=== PATIENT | female | born 1970 | race African-American/Black ===

== ENCOUNTER 2017-01-21 06:01 | Emergency (ER) | payer SELFPAY ==
[2017-01-21 06:49] LABS: Bilirubin Negative (Negative); Blood, Urine Moderate (Negative); Glucose, Urine (Dipstick) Negative (Negative); Ketone, Urine Negative (Negative); Nitrite Negative (Negative); Protein, Urine (Dipstick) Negative (Neg-Trace); Urobilinogen 0.2 mg/dL (0.2-1.0)
[2017-01-21 07:17] LABS: Bacteria/HPF 1+ HPF (None Seen); Hyaline Casts/LPF 0-3 HYALINE CAST LPF (0-3 Hyaline)
[2017-01-21 07:47] LABS: #Basophils 0.1 thou/uL (0.0-0.2); #Eosinphils 0.1 thou/uL (0.0-0.7); #Lymphocytes 2.2 thou/uL (1.20-3.40); #Monocytes 0.4 thou/uL (0.11-0.59); %Basophils 1.8 % (0.0-1.0); %Eosinophils 2.4 % (0.0-10.0); %Lymphocytes 37.5 % (21.0-51.0); %Monocytes 6.7 % (0.0-10.0); Hematocrit 42.5 % (36.0-47.0); Mean Platelet Volume 7.7 fL (7.4-10.4); Red Blood Cell (RBC) Count 4.66 mill/uL (4.20-5.40); White Blood Cell (WBC) Count 5.9 thou/uL (4.8-10.8)
[2017-01-21 08:13] LABS: ALT (SGPT) 14 U/L (8-55); AST (SGOT) 13 U/L (5-34); Alkaline Phosphatase 71 U/L (40-150); Anion Gap 8 mmol/L (10-20); BUN (Urea Nitrogen) 9 mg/dL (7.0-18.7); Bilirubin, Total 0.2 mg/dL (0.2-1.2); Calc. Creatinine Clearance 0 mL/min (70-130); Calcium 8.6 mg/dL (7.8-10.44); Carbon Dioxide 27 mmol/L (22-29); Chloride 109 mmol/L (98-107); Estimated GFR-MDRD Greater than 90; Globulin 3.5 g/dL (2.4-3.5); Protein, Total 6.9 g/dL (6.0-8.3)
--- NOTE | 2017-01-21 08:28 | RAD ---
UPRIGHT PORTABLE CHEST ONE VIEW: HISTORY: A 46-year-old female with urinary frequency and left groin pain. COMPARISON: 11/07/2014. FINDINGS: Heart size is within normal limits. The lungs show no acute process. No confluent pneumonia, overt edema, or pleural effusion. IMPRESSION: No acute intrathoracic disease. Stable from prior study. POS: [facility]
[2017-01-21] MEDS ORDERED: Ondansetron HCl/PF 4 MG/2 ML Vial ONE (08:55)
--- NOTE | 2017-01-21 09:20 | CT ---
CT OF ABDOMEN AND PELVIS: Date: 01/21/17 COMPARISON: 04/25/16. HISTORY: Hematuria, diarrhea, left lower quadrant pain. TECHNIQUE: Serial axial CT imaging at 5 mm intervals from lung bases through pubic symphysis with intravenous c ontrast. Coronal reformatted imaging obtained. FINDINGS: The lack of oral contrast significantly limits assessment of the bowel. The imaged lung bases are unremarkable. No free intraperitoneal air is noted. The liver, spleen, gallbladder, pancreas, adrenal glands, and kidneys appear grossly unremarkable. No evidence for bowel obstruction or appendicitis. In the right hemipelvis, on axial image 67, there is an oval area of decreased density measuring 4.9 x 2.5 cm, etiology uncertain given lack of oral contrast. This could represent unopacified bowel, s mall volume free fluid, and/or a right adnexal abnormality. There is patchy heterogeneous enhancement of the left aspect of the uterus which could be on the bas is of vascular shunting or fibroid disease. Scattered areas of atherosclerotic calcification of the infrarenal abdominal aorta noted. No lymphad enopathy is identified within the pelvis, retroperitoneum, or mesentery. There are mild stable degenerative changes involving the sacroiliac joints. No acute osseous abnorma lity is noted. IMPRESSION: 1. Oval area of decreased density within the right hemipelvis as detailed above, limited in assessm ent without oral contrast media. This could represent unopacified bowel or an abnormality within the right adnexa. 2. No evidence for bowel obstruction or free intraperitoneal air. POS: [facility]
[2017-01-21] MEDS ORDERED: Ketorolac Tromethamine 30 MG/ML VIAL ONE (10:03)
[2017-01-21] MEDS ORDERED: ISOVUE-370 76%-LOCM 1 ML ONE (15:49)
== END 2017-01-21 12:55 | disposition home or self-care (01) ==
LOC: ERS 06:01
DX: K52.9 Noninfective gastroenteritis and colitis, unspecified (principal); F17.210 Nicotine dependence, cigarettes, uncomplicated; F31.9 Bipolar disorder, unspecified; F41.9 Anxiety disorder, unspecified; E78.00 Pure hypercholesterolemia, unspecified; I10 Essential (primary) hypertension; J45.909 Unspecified asthma, uncomplicated; Z79.899 Other long term (current) drug therapy
CPT/HCPCS: 36415; 71010; 74177; 80053; 81003; 81015; 81025; 85025; 96374; 96375; J1885; J2405

== ENCOUNTER 2021-05-24 12:02 | Inpatient (IN) | payer SELFPAY ==
[2021-05-24] MEDS ORDERED: methylPREDNISolone Sod Succ/PF 125 MG/2 ML VIAL ONE (12:24)
[2021-05-24] MEDS ORDERED: PROVENTIL INHALER 6.7 G (200 INHALATIONS) ONE (12:24)
[2021-05-24] MEDS ORDERED: cefTRIAXone\\ROCEPHIN 1 GM VIAL ONE (12:24)
[2021-05-24] MEDS ORDERED: Magnesium 2 GM/50 ML BAG (IN WATER) ONE (12:24)
[2021-05-24] MEDS ORDERED: Albuterol 200 PUFF (6.7GM INHALER) ONE (12:37)
[2021-05-24 13:12] LABS: #Lymphocytes 2.2 thou/uL (1.20-3.40); #Monocytes 0.3 thou/uL (0.11-0.59); #Neutrophils 11.2 thou/uL (1.40-6.50); %Basophils 0.1 % (0.0-1.0); %Eosinophils 0.2 % (0.0-10.0); %Lymphocytes 15.9 % (21.0-51.0); %Monocytes 1.9 % (0.0-10.0); %Neutrophils 81.9 % (42.0-75.0); Hemoglobin 13.9 g/dL (12.0-16.0); Mean Corpuscular HGB CONC 31.4 g/dL (32.0-36.0); Mean Corpuscular Hemoglobin 28.4 pg (27.0-31.0); Mean Corpuscular Volume 90.4 fL (78.0-98.0); Mean Platelet Volume 7.5 fL (7.4-10.4); Platelet Count 348 thou/uL (130-400); RBC Distribution Width 12.3 % (11.5-14.5); Red Blood Cell (RBC) Count 4.89 mill/uL (4.20-5.40); White Blood Cell (WBC) Count 13.7 thou/uL (4.8-10.8)
[2021-05-24 13:18] LABS: Bilirubin Negative (Negative); Blood, Urine 3+ (Negative); Clarity Turbid (Clear); Glucose, Urine (Dipstick) 300 mg/dL (Negative); Ketone, Urine Negative (Negative); Leukocyte 75 Leu/uL (Negative); Nitrite Negative (Negative); Protein, Urine (Dipstick) 70 mg/dL (Neg-Trace); RBC/HPF 21-50 HPF (0-3); Urobilinogen Normal mg/dL (Less than 2)
[2021-05-24 13:19] LABS: Bacteria/HPF 1+ HPF (None Seen)
[2021-05-24 13:36] LABS: ALT (SGPT) 18 U/L (8-55); AST (SGOT) 17 U/L (5-34); Albumin 4.1 g/dL (3.5-5.0); Alkaline Phosphatase 87 U/L (40-110); Anion Gap 16 mmol/L (10-20); BUN (Urea Nitrogen) 9 mg/dL (7.0-18.7); Bilirubin, Total 0.3 mg/dL (0.2-1.2); Calc. Creatinine Clearance 0 mL/min (70-130); Calcium 9.3 mg/dL (7.8-10.44); Carbon Dioxide 23 mmol/L (22-29); Chloride 102 mmol/L (98-107); Globulin 3.9 g/dL (2.4-3.5); Glucose 292 mg/dL (70-105); Potassium 3.3 mmol/L (3.5-5.1); Sodium 138 mmol/L (136-145)
[2021-05-24 13:50] LABS: SARS-CoV-2 NAA Rapid Test Not Detected (NotDetected)
[2021-05-24] MEDS ORDERED: Azithromycin 500 MG VIAL ONE (13:50)
[2021-05-24] MEDS ORDERED: Ondansetron ODT 4 MG TAB PO PRN (14:02)
[2021-05-24] MEDS ORDERED: HumaLOG 300 UNITS/3 ML VIAL SC PRN (14:18)
[2021-05-24] MEDS ORDERED: Dextrose 50% Abboject 50 ML SYRINGE SLOW IVP PRN (14:18)
[2021-05-24] MEDS ORDERED: Dextrose 5% in Water 1,000 ML IV PRN (14:18)
[2021-05-24] MEDS ORDERED: hydrALAZINE 10 MG TAB PO SCH (14:30)
[2021-05-24] MEDS: hydrALAZINE 20 MG/ML VIAL SLOW IVP PRN ×2 (15:56→20:15)
[2021-05-24] MEDS: Sodium Chloride 0.9% 1,000 ML IV SCH (15:59)
[2021-05-24 16:07] VITALS: BMI 34.1
[2021-05-24 18:13] LABS: Amphetamine Not Detected (NotDetected); Barbiturates Screen Not Detected (NotDetected); Benzodiazepine Screen Not Detected (NotDetected); Cocaine Metabolite Screen Not Detected (NotDetected); Methadone Not Detected (NotDetected); Methamphetamine Not Detected (NotDetected); Opiate Screen Not Detected (NotDetected); Oxycodone Screen Not Detected (NotDetected); Phencyclidine (PCP) Not Detected (NotDetected); THC/Cannabinoid Screen Detected (NotDetected); Tricyclic Screen Not Detected (NotDetected)
[2021-05-24 18:30] LABS: Lactic Acid 2.5 mmol/L (0.5-2.2)
[2021-05-24] MEDS: Acetaminophen 325 MG TAB PO PRN (20:19)
[2021-05-24] MEDS: Simvastatin 10 MG TAB PO SCH (21:17)
[2021-05-24] MEDS: Labetalol HCl 100 MG/20 ML VIAL SLOW IVP PRN (21:18)
[2021-05-24] MEDS: Guaifenesin DM 100-10/5 ML UDCUP PO PRN (21:18)
[2021-05-25] MEDS: Acetaminophen 325 MG TAB PO PRN (00:02)
[2021-05-25] MEDS: Melatonin 3 MG TAB PO PRN ×2 (00:49→20:22)
[2021-05-25] MEDS: Sodium Chloride 0.9% 1,000 ML IV SCH (05:21)
[2021-05-25 06:41] LABS: Hemoglobin A1c 5.6 % (4.0-6.0)
[2021-05-25 06:54] LABS: Anion Gap 13 mmol/L (10-20); BUN (Urea Nitrogen) 6 mg/dL (7.0-18.7); Calc. Creatinine Clearance 166 mL/min (70-130); Calcium 8.8 mg/dL (7.8-10.44); Carbon Dioxide 21 mmol/L (22-29); Chloride 108 mmol/L (98-107); Glucose 90 mg/dL (70-105); Potassium 3.4 mmol/L (3.5-5.1); Sodium 139 mmol/L (136-145)
[2021-05-25 06:55] LABS: Hemoglobin 12.8 g/dL (12.0-16.0); Lymphocytes 23 % (21-51); MDiff Complete? YES; Mean Corpuscular HGB CONC 32.5 g/dL (32.0-36.0); Mean Corpuscular Hemoglobin 29.5 pg (27.0-31.0); Mean Corpuscular Volume 90.6 fL (78.0-98.0); Mean Platelet Volume 7.6 fL (7.4-10.4); Monocytes 3 % (0-10); Neutrophil 74 % (42-75); Platelet Count 343 thou/uL (130-400); Platelet Morphology Comment Appears Adequate; RBC Distribution Width 12.3 % (11.5-14.5); RBC Morphology Normal; Red Blood Cell (RBC) Count 4.35 mill/uL (4.20-5.40); White Blood Cell (WBC) Count 18.5 thou/uL (4.8-10.8)
[2021-05-25] MEDS: Enoxaparin Sodium 40 MG/0.4 ML SYRINGE SC SCH (08:22)
[2021-05-25] MEDS: Amlodipine 5 MG TAB PO SCH (08:22)
[2021-05-25] MEDS: Aspirin Chewable 81 MG TAB PO SCH (08:22)
[2021-05-25] MEDS ORDERED: Potassium Bicarbonate/Cit Ac 20 MEQ TAB PO SCH (08:30)
[2021-05-25] MEDS ORDERED: Lisinopril 10 MG TAB PO SCH (09:00)
[2021-05-25] MEDS ORDERED: Lisinopril/Hydrochlorothiazide 10 mg/12.5 mg Tablet PO SCH (09:00)
[2021-05-25] MEDS: cefTRIAXone\\ROCEPHIN 1 GM in Sodium Chloride 0.9% 100 ML IVPB SCH (11:50)
[2021-05-25] MEDS ORDERED: hydrALAZINE 20 MG/ML VIAL SLOW IVP PRN (12:11)
[2021-05-25] MEDS: Guaifenesin DM 100-10/5 ML UDCUP PO PRN (12:13)
[2021-05-25] MEDS ORDERED: Azithromycin 500 MG in Sodium Chloride 0.9% 250 ML 250 ML IVPB SCH (14:00)
[2021-05-25] MEDS: Labetalol HCl 100 MG/20 ML VIAL SLOW IVP PRN (16:40)
[2021-05-25] MEDS: Simvastatin 10 MG TAB PO SCH (20:22)
[2021-05-25] MEDS: Lisinopril 10 MG TAB PO SCH (20:22)
[2021-05-26 06:21] LABS: Anion Gap 13 mmol/L (10-20); BUN (Urea Nitrogen) 6 mg/dL (7.0-18.7); Calc. Creatinine Clearance 154 mL/min (70-130); Calcium 8.7 mg/dL (7.8-10.44); Carbon Dioxide 23 mmol/L (22-29); Chloride 106 mmol/L (98-107); Eosinophils 1 % (0-10); Glucose 79 mg/dL (70-105); Hemoglobin 12.9 g/dL (12.0-16.0); Lymphocytes 52 % (21-51); MDiff Complete? YES; Mean Corpuscular HGB CONC 32.5 g/dL (32.0-36.0); Mean Corpuscular Hemoglobin 29.7 pg (27.0-31.0); Mean Corpuscular Volume 91.5 fL (78.0-98.0); Neutrophil 47 % (42-75); Platelet Count 358 thou/uL (130-400); Platelet Morphology Comment Appears Adequate; Potassium 3.4 mmol/L (3.5-5.1); RBC Distribution Width 12.4 % (11.5-14.5); RBC Morphology Normal; Red Blood Cell (RBC) Count 4.34 mill/uL (4.20-5.40); Sodium 139 mmol/L (136-145); White Blood Cell (WBC) Count 12.5 thou/uL (4.8-10.8)
[2021-05-26] MEDS: Amlodipine 5 MG TAB PO SCH (08:05)
[2021-05-26] MEDS: Aspirin Chewable 81 MG TAB PO SCH (08:05)
[2021-05-26] MEDS: Enoxaparin Sodium 40 MG/0.4 ML SYRINGE SC SCH (08:05)
[2021-05-26] MEDS: Lisinopril 10 MG TAB PO SCH (08:05)
[2021-05-26] MEDS ORDERED: Potassium Chloride 20 MEQ TAB PO SCH (08:30)
[2021-05-26 11:34] VITALS: BP 170/83; TEMP 98.1
[2021-05-26] MEDS: cefTRIAXone\\ROCEPHIN 1 GM in Sodium Chloride 0.9% 100 ML IVPB SCH (11:47)
== END 2021-05-26 14:02 | disposition home or self-care (01) | DRG 193 ==
LOC: ERS 12:02 → T4-B 13:56 → INTOOBSV 13:56 → OBSVTOIN 05-25 08:19
PROVIDERS: ADMIT Internal Medicine; ATTEND Family Medicine
DX: J18.9 Pneumonia, unspecified organism (principal); J96.01 Acute respiratory failure with hypoxia; I10 Essential (primary) hypertension; J45.909 Unspecified asthma, uncomplicated; R19.7 Diarrhea, unspecified; F17.210 Nicotine dependence, cigarettes, uncomplicated; R73.9 Hyperglycemia, unspecified; Z20.822 Contact with and (suspected) exposure to COVID-19; F12.10 Cannabis abuse, uncomplicated; B34.8 Other viral infections of unspecified site; E87.6 Hypokalemia; E66.9 Obesity, unspecified; E86.0 Dehydration; E78.00 Pure hypercholesterolemia, unspecified; F31.9 Bipolar disorder, unspecified; Z79.82 Long term (current) use of aspirin; Z79.899 Other long term (current) drug therapy; Z68.34 Body mass index [BMI] 34.0-34.9, adult
CPT/HCPCS: 36415; 36416; 71045; 80048; 80053; 80306; 81003; 81015; 83036; 83605; 83630; 83880; 84484; 85025; 87040; 87045; 87046; 87086; 87324; 87427; 87449; 87633; 93005; 94640; 96365; 96367; 96368; 96375; G0378; J0360; J0456; J0696; J1650; J1815; J2930; J3475; J3490; J7050; J7620; U0002

== ENCOUNTER 2021-09-15 11:21 | Emergency (ER) | payer SELFPAY ==
[2021-09-15] MEDS ORDERED: Dicyclomine 20 MG/2 ML VIAL ONE (13:26)
[2021-09-15] MEDS ORDERED: Ketorolac Tromethamine 30 MG/ML VIAL ONE (13:26)
[2021-09-15] MEDS ORDERED: Ondansetron PF 4 MG/2 ML Vial ONE (13:26)
[2021-09-15 14:52] LABS: SARS-CoV-2 NAA Rapid Test DETECTED (NotDetected)
== END 2021-09-15 15:42 | disposition home or self-care (01) ==
LOC: ERS 11:21
DX: U07.1 COVID-19 (principal); J45.901 Unspecified asthma with (acute) exacerbation; I10 Essential (primary) hypertension; E78.00 Pure hypercholesterolemia, unspecified; F17.210 Nicotine dependence, cigarettes, uncomplicated; Z79.899 Other long term (current) drug therapy
CPT/HCPCS: 94640; 96361; 96372; 96374; 96375; J0500; J1885; J2405; J7620

== ENCOUNTER 2022-01-08 07:24 | Emergency (ER) | payer SELFPAY ==
[2022-01-08 08:21] LABS: #Eosinphils 0.1 thou/uL (0.0-0.7); #Lymphocytes 2.8 thou/uL (1.20-3.40); #Monocytes 0.6 thou/uL (0.11-0.59); #Neutrophils 7.8 thou/uL (1.40-6.50); %Basophils 0.1 % (0.0-1.0); %Eosinophils 1.2 % (0.0-10.0); %Lymphocytes 24.5 % (21.0-51.0); %Monocytes 5.3 % (0.0-10.0); %Neutrophils 68.8 % (42.0-75.0); Hemoglobin 12.9 g/dL (12.0-16.0); Mean Corpuscular HGB CONC 32.2 g/dL (32.0-36.0); Mean Corpuscular Hemoglobin 28.5 pg (27.0-31.0); Mean Corpuscular Volume 88.7 fL (78.0-98.0); Mean Platelet Volume 7.9 fL (7.4-10.4); Platelet Count 303 thou/uL (130-400); RBC Distribution Width 13.4 % (11.5-14.5); Red Blood Cell (RBC) Count 4.51 mill/uL (4.20-5.40); White Blood Cell (WBC) Count 11.4 thou/uL (4.8-10.8)
[2022-01-08 08:37] LABS: ALT (SGPT) 14 U/L (8-55); AST (SGOT) 13 U/L (5-34); Albumin 3.9 g/dL (3.5-5.0); Alkaline Phosphatase 86 U/L (40-110); Anion Gap 12 mmol/L (10-20); BUN (Urea Nitrogen) 7 mg/dL (7.0-18.7); Bilirubin, Total 0.6 mg/dL (0.2-1.2); Calc. Creatinine Clearance 0 mL/min (70-130); Calcium 8.7 mg/dL (7.8-10.44); Carbon Dioxide 22 mmol/L (22-29); Chloride 108 mmol/L (98-107); Estimated GFR 107; Globulin 3.3 g/dL (2.4-3.5); Glucose 103 mg/dL (70-105); Potassium 3.4 mmol/L (3.5-5.1); Protein, Total 7.2 g/dL (6.0-8.3); Sodium 139 mmol/L (136-145)
== END 2022-01-08 10:04 ==
LOC: ERS 07:24
DX: B34.9 Viral infection, unspecified (principal); I10 Essential (primary) hypertension; E78.00 Pure hypercholesterolemia, unspecified; F17.210 Nicotine dependence, cigarettes, uncomplicated
CPT/HCPCS: 36415; 71045; 80053; 83880; 84443; 84484; 85025; J7620

== ENCOUNTER 2022-11-22 10:08 | Emergency (ER) | payer BC, SELFPAY ==
[2022-11-22 11:36] LABS: SARS-CoV-2 NAA Rapid Test Not Detected (NotDetected)
== END 2022-11-22 11:02 | disposition home or self-care (01) ==
LOC: ERS 10:08
DX: B34.9 Viral infection, unspecified (principal); Z20.822 Contact with and (suspected) exposure to COVID-19; F17.210 Nicotine dependence, cigarettes, uncomplicated; I10 Essential (primary) hypertension
CPT/HCPCS: 99283